=== PATIENT | female | born 1975 | race Caucasian/White ===

== ENCOUNTER → 2019-06-17 12:29 | Outpatient (BNVA) | payer OTHER, SELFPAY | PROVIDERS: Family Provider Family Medicine; PCP Family Medicine; Referring Provider Nurse Practitioner; Visit Provider Nurse Practitioner | DX: F41.0 Panic disorder [episodic paroxysmal anxiety] (principal); E03.9 Hypothyroidism, unspecified; Z76.89 Persons encountering health services in other specified circumstances | CPT/HCPCS: 84443 ==

== ENCOUNTER → 2019-08-04 11:20 | Outpatient (BNVA) | payer OTHER, SELFPAY | PROVIDERS: Family Provider Family Medicine; PCP Nurse Practitioner; Referring Provider Nurse Practitioner; Visit Provider Nurse Practitioner | DX: E03.9 Hypothyroidism, unspecified (principal) | CPT/HCPCS: 84443 ==

== ENCOUNTER → 2019-11-28 08:50 | Outpatient (BNVA) | payer OTHER, SELFPAY | PROVIDERS: Family Provider Family Medicine; PCP Family Medicine; Visit Provider Family Medicine | DX: Z13.6 Encounter for screening for cardiovascular disorders (principal); E03.9 Hypothyroidism, unspecified; F41.0 Panic disorder [episodic paroxysmal anxiety] | CPT/HCPCS: 80053; 80061; 84443; 85025; 88175 ==

== ENCOUNTER 2020-01-02 15:01 | Outpatient (CLI) | payer OTHER, SELFPAY ==
--- NOTE | 2020-01-02 15:30 | MM_ITS ---
WS: [id number] BILATERAL SCREENING DIGITAL MAMMOGRAM WITH CAD HISTORY: screening mammogram COMPARISON: None available. Bilateral CC and MLO views submitted. Computer aided detection analyzed. Breast composition: There are scattered areas of fibroglandular density. No suspicious masses, microc alcifications or architectural distortion. MM/[place] [id number] IMPRESSION: BI-RADS: 1-Negative FOLLOW UP: 1 Year Follow-up
== END 2020-01-02 15:02 | disposition home or self-care (01) ==
LOC: RADSHAW 15:05
PROVIDERS: PCP Family Medicine; Visit Provider Family Medicine
DX: Z12.31 Encounter for screening mammogram for malignant neoplasm of breast (principal)
CPT/HCPCS: 77067

== ENCOUNTER → 2020-07-06 18:28 | Outpatient (BNVA) | payer OTHER, SELFPAY | PROVIDERS: PCP Family Medicine; Visit Provider Nurse Practitioner Family | DX: S39.012A Strain of muscle, fascia and tendon of lower back, initial encounter (principal); M54.9 Dorsalgia, unspecified | CPT/HCPCS: 81000 ==

== ENCOUNTER → 2020-08-10 15:15 | Outpatient (BNVA) | payer OTHER, SELFPAY | PROVIDERS: PCP Family Medicine; Visit Provider Family Medicine | DX: E03.9 Hypothyroidism, unspecified (principal); R73.9 Hyperglycemia, unspecified | CPT/HCPCS: 83036; 84443 ==

== ENCOUNTER 2020-11-03 10:23 | Emergency (ER) | payer OTHER, SELFPAY ==
--- NOTE | 2020-11-03 10:45 | XR_ITS ---
WS: [id number] PORTABLE CHEST HISTORY: covid and SOB COMPARISON: None available. Very mild interstitial thickening throughout both lungs. No areas of dense consolidation. No lobar co llapse. No pleural effusion or pneumothorax. Cardiac size: Normal. Mediastinum/Aorta: Normal mediastinum. No osseous abnormality seen. XR/XR chest 1V portable [id number] IMPRESSION: Very mild interstitial thickening probably due to pneumonitis.
--- NOTE | 2020-11-03 10:45 | ECG_ITS ---
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 Measurements Intervals [place] Rate: 81 P: 52 [place]: 158 QRS: 17 QRSD: 91 T: 21 QT: 387 QTc: 451 Interpretive Statements SINUS RHYTHM LOW QRS VOLTAGE IN PRECORDIAL LEADS [QRS DEFLECTION < 1.0 mV IN CHEST LEADS] NONSPECIFIC T-WAVE ABNORMALITY No previous ECG available for comparison Electronically Signed On 11-03-2020 20:05:34 CDT by Karen Schrader M.D. [id number] f
[2020-11-03 10:51] VITALS: PULSE 88; RESP 19; TEMP 37.1; O2SAT 97; BMI 47.8
[2020-11-03 11:27] VITALS: O2SAT 99
[2020-11-03 11:30] LABS: Basophils % 0.4 %; Eosinophils # 0.1 10^3/uL (0.0-0.8); Eosinophils % 1.6 %; Hematocrit 40.2 % (37.0-47.0); Hemoglobin 13.1 g/dL (11.5-15.3); Lymphocytes # 1.7 10^3/uL (0.8-4.8); Lymphocytes % 33.5 %; Mean Corpuscular HGB Conc 32.6 g/dL (30.0-36.0); Mean Platelet Volume 10.4 fL (7.4-10.4); Monocytes # 0.4 10^3/uL (0.2-0.9); Neutrophils # 2.94 10^3/uL (1.8-7.7); Neutrophils % 57.3 %; Nucleated Red Blood Cells % 0 %; Platelet Count 211 10^3/cmm (130-400); Red Blood Count 4.37 10^6/uL (4.1-5.3); Red Cell Distribution Width 11.8 % (12.1-15.1); White Blood Count 5.1 10^3/uL (4.0-10.0)
[2020-11-03 12:29] LABS: D Dimer 0.62 ug/mIFEU (0-0.59)
[2020-11-03 12:33] LABS: Troponin(5th) Baseline 6 ng/L (0-10)
[2020-11-03 12:34] LABS: Lactate (Lactic Acid level) 1.8 mmol/L (0.5-2.2)
[2020-11-03 12:35] LABS: Alanine Aminotransferase 25 U/L (0-33); Albumin Level 4.1 g/dL (3.5-5.2); Alkaline Phosphatase 127 IU/L (35-105); Aspartate Amino Transferase 20 U/L (0-32); Blood Urea Nitrogen 7 mg/dL (6-20); Calcium 8.8 mg/dL (8.5-10.5); Carbon Dioxide 28 mmol/L (22-29); Chloride 105 mmol/L (98-107); Creatinine Clr Calc Pharmacy 150.3371; Globulin 2.2 g/dL (1.3-4.6); Glomerular Filtration Rate 108.1 mL/min (90-130); Glucose 110 mg/dL (65-115); Osmolality Calculated 293 mOsm/kg (285-295); Sodium 142 mmol/L (136-145); Total Bilirubin 0.3 mg/dL (0.15-1.2); Total Protein 6.3 g/dL (6.6-8.7)
--- NOTE | 2020-11-03 12:38 | CT_ITS ---
WS: [id number] CT CHEST ANGIOGRAPHY WITH REFORMATS HISTORY: Elevated dimer sob covid TECHNIQUE: Contiguous axial images are obtained through the chest during arterial injection of intrav enous contrast. Images are reconstructed to evaluate the pulmonary arteries. MIP imaging also reviewe d. All CT scans at [facility] use at least one of these dose optimization techniques: aut omated exposure control; mA and/or kV adjustment per patient size (includes targeted exams where dose is matched to clinical indication); or iterative reconstruction. CONTRAST: Omnipaque 350; 95 mL IV. DLP: 589.47 mGy.cm COMPARISON: None available. Opacification of the pulmonary arteries. No pulmonary embolism. Normal-sized thoracic aorta. Pulmonar y artery size is slightly larger than the aorta. Heart size is normal. No RIGHT heart strain. Subcent imeter RIGHT hilar lymph node. Numerous small scattered opacifications throughout all lobes. Predominantly peripheral distribution a nd slightly atypical for Covid due to their upper lobe predominant distribution. No pericardial or pl eural effusions. No abnormality of the upper abdomen. CT/CT angio chest PE protcl [id number] IMPRESSION: 1. No pulmonary embolism. 2. Bilateral multifocal areas of small pulmonary opacifications. Consider hype rsensitivity pneumonia and pneumonitis correlating with Covid.
--- NOTE | 2020-11-03 12:45 | ECG_ITS ---
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 Measurements Intervals [place] Rate: 75 P: 55 [place]: 163 QRS: 19 QRSD: 92 T: 20 QT: 391 QTc: 439 Interpretive Statements SINUS RHYTHM NONSPECIFIC T-WAVE ABNORMALITY No previous ECG available for comparison Electronically Signed On 11-03-2020 20:12:11 CDT by Karen Schrader M.D. [id number]
[2020-11-03 12:57] VITALS: BP 133/94; PULSE 76; RESP 18; O2SAT 98
--- NOTE | 2020-11-03 13:47 | PC.NURSE ---
patient c/o chest pain while coughing, no acute distress noted
[2020-11-03 14:27] LABS: Troponin 5 2HR Delta 0 ABS# (0-10)
[2020-11-03 14:34] VITALS: BP 117/75; PULSE 84; RESP 16; O2SAT 97
[2020-11-03] MEDS: iohexol 350 mg/mL 100 mL Btl IV (14:55)
--- NOTE | 2020-11-03 15:41 | W.ED.COVID ---
HPI - COVID General: Chief Complaint: COVID symptoms Stated Complaint: covid positive result, sob, chest pain, fever Time Seen by Provider: 11/03/20 10:39 Source: patient Mode of arrival: ambulatory Limitations: no limitations Triage information: No fever, cough or shortness of breath. No known COVID + exposure last 14 days History of Present Illness: HPI Narrative: 44 yo female patient presents to ER with SOB, chest pain, fever and cough. Pt had onset of symptoms 14 days ago but tested positive on Sunday. Pt states she was feeling better then started feeling worse today. Pt denies neck pain, back pain abd pain or urinary sx. pt states she is otherwise healthy COVID 19 common symptoms: positive fever(s), chills, productive cough and dyspnea; negative non-productive cough, fatigue, body aches, headache(s), throat pain, nasal congestion, nausea, vomiting or diarrhea COVID 19 other sytmptoms: negative chest pain or confusion COVID Results: No Data to Display Review of Systems Const: Reports: fever(s) and chills; Denies: body aches, change in appetite, change in weight, fatigue, malaise or diaphoresis Eyes: Denies: change in vision, blurry vision, blind spots, photophobia, eye discomfort, eye discharge, eye redness, floaters or seeing flashes ENMT: Denies: throat pain, uvular edema, enlarged tonsils, odynophagia, hoarseness, mouth pain, swelling of lips/tongue, oral sores, bleeding gums, dental pain, dry mouth, ear or mastoid pain, ear discharge, change in hearing, tinnitus, disequilibrium, nasal discharge, nasal congestion, post nasal drip or sinus pain Card: Denies: chest pain, palpitations, irregular heart rhythm, edema, swelling of feet/ankles, lightheadedness, syncope, pre-syncope, dyspnea on exertion, orthopnea, leg pain with exertion or acrocyanosis Resp: Reports: dyspnea and productive cough; Denies: non-productive cough, wheezing, stridor, pain on inspiration, change in phlegm color, hemoptysis or chest congestion GI: Denies: abdominal pain, nausea, vomiting, hematemesis, dysphagia, diarrhea, constipation, GI cramping, change in bowel habits or rectal pain : Denies: flank pain, difficulty voiding, dysuria, urinary frequency, urinary urgency, urinary hesitancy or hematuria Musc: Denies: neck pain, back pain, extremity pain, extremity swelling, joint pain, joint swelling, joint redness, joint warmth or deformity Skin/Breast: Denies: rash, pruritus, erythema, sores, new lesions, changes in skin color or dry skin Neuro: Denies: headache(s), numbness in extremities, weakness in extremities, sensory changes, lack of coordination, difficulty walking, frequent falls, dizziness, vertigo, confusion, behavioral changes, Slurred speech present, difficulty communicating thoughts or seizure-like activity Psych: Denies: anxiety, depression, suicidal ideation or homicidal ideation Endo: Denies: polyuria, polydipsia, tired all the time, cold intolerance, excessive sweating, flushing, hot flashes or heat intolerance Osmar/Lymph: Denies: easy bruising, easy bleeding, petechiae, purpura, enlarged lymph nodes or tender lymph nodes All/Imm: Denies: urticaria, throat swelling, tongue swelling, facial swelling, acute wheezing or itchy eyes PFSH ED PFSH: Medical History Allergic rhinitis GERD (gastroesophageal reflux disease) Hypothyroidism Severe anxiety with panic Surgical History History of endometrial ablation perineoplasty at the same time Hx of oophorectomy Family History Other Cancer Dementia Diabetes Hypertension Psychiatric illness Stroke Social History Smoking and tobacco status: former smoker Alcohol intake: current Alcohol intake frequency: few times a month Adopted: No Caregiver/support person: No Lives independently: Yes Household members: spouse Housing: House Marital status: Number of children: 4 Number of grandchildren: 4 Highest education level completed: High School Graduate service: No Current occupational status: employed Current occupational exposures/hazards: Yes Pets and animals: Yes History of recent travel: No Agree to transfusion: Yes (06/17/2019) Physical Exam Const: COMMON NORMALS: no acute distress, patient oriented x3, healthy appearing, alert and well nourished GENERAL APPEARANCE: cooperative, comfortable, well kempt and well developed; not ill appearing ORIENTATION/CONSCIOUSNESS: Yes awake, Yes oriented to person, Yes oriented to place and Yes oriented to time HENMT: COMMON NORMALS: normocephalic, atraumatic, hearing grossly normal bilaterally, external ears normal, EAC's normal, TM's normal bilaterally, Normal external nose present, Normal nasal mucous membranes and turbinates present and moist oral mucous membranes HEAD & SCALP: normal to inspection, normocephalic and atraumatic FACE & SINUS: normal facial exam, sinuses nontender and face symmetric NOSE: Normal external nose present, Normal nares present, Normal nasal mucous membranes and turbinates present, No nasal discharge present and Abnormal external nose present EXTERNAL EAR: Yes external ears normal and Yes mastoids normal EXTERNAL AUDITORY CANAL: EAC's normal TYMPANIC MEMBRANE: TM's normal bilaterally MOUTH: Normal oral and palatal mucosa present, lip normal, tongue normal and Normal salivary glands and ducts present THROAT: no uvular edema Eye: COMMON NORMALS: Equal, round and reactive pupils present, EOMs intact bilaterally, conjunctivae normal, no scleral icterus and no papilledema GENERAL EYE: appearance normal, both eyes and all related structures EYELID: eyelids normal CONJUNCTIVA: Yes conjunctivae normal SCLERA: sclerae normal CORNEA: Yes corneas normal PUPIL: Yes Equal, round and reactive pupils present DIRECT OPHTHALMOSCOPY: Yes no papilledema Neck/C-Spine: COMMON NORMALS: full ROM, no lymphadenopathy, supple, no meningeal signs, no JVD and Thyroid normal GENERAL: Yes normal visual inspection and Yes trachea midline THYROID: Thyroid normal CERVICAL SPINE: Yes cervical ROM normal Lymph: LYMPHATIC: no lymphadenopathy noted and no lymphedema noted Chest: COMMONS NORMALS: normal inspection of the chest and normal palpation of entire chest wall Resp: COMMON NORMALS: normal respiratory effort, No retractions, No use of accessory muscles and clear to auscultation bilaterally EFFORT & INSPECTION: Yes able to speak in complete sentences and Yes symmetric chest movement AUSCULTATION: clear to auscultation bilaterally Cardio: COMMON NORMALS: no JVD, regular rate and regular rhythm RATE: regular rate RHYTHM: regular rhythm GI: COMMON NORMALS: Normal to inspection, nondistended, normoactive bowel sounds present, Soft to palpation, non-tender, No hepatosplenomegaly present, no masses and no bruits INSPECTION: Yes normal to inspection AUSCULTATION: Yes normoactive bowel sounds PALPATION: Yes Soft to palpation and Yes No hepatosplenomegaly present PERCUSSION: normal to percussion RECTAL EXAM: deferred : COMMON NORMALS: Yes no CVA tenderness, Yes normal external appearance, Yes normal appearance of the vagina, Yes normal appearance of the cervix, Yes normal bimanual exam, Yes No adnexal tenderness and Yes no masses BLADDER/KIDNEY EXAM: Yes no CVA tenderness BIMANUAL EXAM - VAGINA & UTERUS: Yes normal bimanual exam Back/Pelvis: COMMON NORMALS: no CVA tenderness, thoracic and lumbar spine normal to inspection, no thoracic nor lumbar tenderness, thoraco-lumbar ROM normal and straight leg raise negative bilaterally THORACIC SPINE/UPPER BACK: Yes normal to inspection LUMBAR SPINE/LOWER BACK: Yes normal to inspection Extremity: COMMON NORMALS: normal to inspection, full ROM and capillary refill normal GENERAL: Yes normal exam except as noted Neuro: COMMON NORMALS: patient oriented x3, CN's II-XII intact bilaterally, moves all extremities, no focal motor deficits, no sensory deficits noted, deep tendon reflexes 2+ bilaterally and gait normal SENSORIUM/ORIENTATION: Yes alert, Yes oriented to person, Yes oriented to place and Yes oriented to time MENINGEAL SIGNS: Yes no meningeal signs CRANIAL NERVES: Yes CN normal except as noted SPEECH: speech normal GAIT: Yes Normal gait present SENSORY EXAM: Yes extremities MOTOR EXAM: 5/5 motor strength present throughout Psych: COMMON NORMALS: mental status grossly normal, Normal thought process present, cooperative, normal affect, speech normal, activity/motor behavior normal, denies hallucinations, denies homicidal ideation and denies suicidal ideation APPEARANCE: Yes grossly normal and Yes well kempt ATTITUDE: Yes calm ACTIVITY/MOTOR BEHAVIOR: Yes appropriate eye contact SPEECH: Yes normal speech THOUGHT PROCESS: Normal thought process present THOUGHT CONTENT: Yes Normal thought content present ATTENTION/CONCENTRATION: Yes attention grossly intact MEMORY/COGNITION: Yes memory grossly intact INSIGHT: Good insight present (Psych) JUDGEMENT: Good judgement present (Psych) Skin: COMMON NORMALS: no rashes or lesions noted, no wounds, turgor normal, no jaundice, no petechiae and no mottling GENERAL SKIN EXAM: no rashes or lesions noted and turgor normal Course Vital Signs: Vital signs: Vital Signs Temperature 98.7 F 11/03/20 10:51 Pulse Rate 84 11/03/20 14:34 Respiratory Rate 16 11/03/20 14:34 Blood Pressure 117/75 11/03/20 14:34 Pulse Oximetry 97 11/03/20 14:34 MDM - COVID MDM Narrative: Medical decision making narrative: Pt is well appearing non toxic and in no acute distress. Pt has no evidence of hypoxia and lungs are CTA. VSS. Labs do not reveal any concerning findings. D Dimer was elevated so I did order CT chest PE protocol which was negative for PE. Based on CT findings and length of symptoms I do feel antibiotics, steroids and inhaler are appropriate at this time. Delta trop is 0 and EKG does not reveal any st elevations or depressions making this inlikely to be cardiac in nature. I have discussed return precautions with patient as well as follow up. Lab Data: Labs: Lab Results 11/03/20 11/03/20 11/03/20 Range/Units 11:22 11:22 11:22 WBC 5.1 (4.0-10.0) 10^3/ uL RBC 4.37 (4.1-5.3) 10^6/u L Hgb 13.1 (11.5-15.3) g/dL Hct 40.2 (37.0-47.0) % MCV 92.0 (81-99) fL MCH 30.0 (28.0-34.0) pg MCHC 32.6 (30.0-36.0) g/dL RDW 11.8 L (12.1-15.1) % Plt Count 211 (130-400) 10^3/c mm MPV 10.4 (7.4-10.4) fL Neut % (Auto) 57.3 % Lymph % (Auto) 33.5 % [place] % (Auto) 7.0 % Eos % (Auto) 1.6 % Baso % (Auto) 0.4 % Neut # (Auto) 2.94 (1.8-7.7) 10^3/u L Lymph # (Auto) 1.7 (0.8-4.8) 10^3/u L [place] # (Auto) 0.4 (0.2-0.9) 10^3/u L Eos # (Auto) 0.1 (0.0-0.8) 10^3/u L Baso # (Auto) 0.0 (0.0-0.1) 10^3/u L Nucleated RBC % (a uto) 0 % Nucleated RBCs # 0.0 /100WBC D-Dimer Cancelled Sodium Cancelled Potassium Cancelled Chloride Cancelled Carbon Dioxide Cancelled Anion Gap Cancelled BUN Cancelled Creatinine Cancelled GFR Calculation Cancelled Glucose Cancelled Calculated Osmolal ity Cancelled Lactate Calcium Cancelled Total Bilirubin Cancelled AST Cancelled ALT Cancelled Alkaline Phosphata se Cancelled Troponin T Baselin e Troponin T 120 Min [place] (0-10) ng/L Delta Troponin T (0-10) ABS# Total Protein Cancelled Albumin Cancelled Globulin Cancelled 11/03/20 11/03/20 11/03/20 Range/Units 11:22 11:22 12:05 WBC (4.0-10.0) 10^3/ uL RBC (4.1-5.3) 10^6/u L Hgb (11.5-15.3) g/dL Hct (37.0-47.0) % MCV (81-99) fL MCH (28.0-34.0) pg MCHC (30.0-36.0) g/dL RDW (12.1-15.1) % Plt Count (130-400) 10^3/c mm MPV (7.4-10.4) fL Neut % (Auto) % Lymph % (Auto) % [place] % (Auto) % Eos % (Auto) % Baso % (Auto) % Neut # (Auto) (1.8-7.7) 10^3/u L Lymph # (Auto) (0.8-4.8) 10^3/u L [place] # (Auto) (0.2-0.9) 10^3/u L Eos # (Auto) (0.0-0.8) 10^3/u L Baso # (Auto) (0.0-0.1) 10^3/u L Nucleated RBC % (a uto) % Nucleated RBCs # /100WBC D-Dimer 0.62 H Sodium Potassium Chloride Carbon Dioxide Anion Gap BUN Creatinine GFR Calculation Glucose Calculated Osmolal ity Lactate Cancelled Calcium Total Bilirubin AST ALT Alkaline Phosphata se Troponin T Baselin e Cancelled Troponin T 120 Min [place] (0-10) ng/L Delta Troponin T (0-10) ABS# Total Protein Albumin Globulin 11/03/20 11/03/20 11/03/20 Range/Units 12:05 12:05 12:05 WBC (4.0-10.0) 10^3/ uL RBC (4.1-5.3) 10^6/u L Hgb (11.5-15.3) g/dL Hct (37.0-47.0) % MCV (81-99) fL MCH (28.0-34.0) pg MCHC (30.0-36.0) g/dL RDW (12.1-15.1) % Plt Count (130-400) 10^3/c mm MPV (7.4-10.4) fL Neut % (Auto) % Lymph % (Auto) % [place] % (Auto) % Eos % (Auto) % Baso % (Auto) % Neut # (Auto) (1.8-7.7) 10^3/u L Lymph # (Auto) (0.8-4.8) 10^3/u L [place] # (Auto) (0.2-0.9) 10^3/u L Eos # (Auto) (0.0-0.8) 10^3/u L Baso # (Auto) (0.0-0.1) 10^3/u L Nucleated RBC % (a uto) % Nucleated RBCs # /100WBC D-Dimer Sodium 142 Potassium 4.0 Chloride 105 Carbon Dioxide 28 Anion Gap 13.0 BUN 7 Creatinine 0.6 GFR Calculation 108.1 Glucose 110 Calculated Osmolal ity 293 Lactate 1.8 Calcium 8.8 Total Bilirubin 0.3 AST 20 ALT 25 Alkaline Phosphata se 127 H Troponin T Baselin e 6 Troponin T 120 Min [place] (0-10) ng/L Delta Troponin T (0-10) ABS# Total Protein 6.3 L Albumin 4.1 Globulin 2.2 11/03/20 Range/Units 14:01 WBC (4.0-10.0) 10^3/ uL RBC (4.1-5.3) 10^6/u L Hgb (11.5-15.3) g/dL Hct (37.0-47.0) % MCV (81-99) fL MCH (28.0-34.0) pg MCHC (30.0-36.0) g/dL RDW (12.1-15.1) % Plt Count (130-400) 10^3/c mm MPV (7.4-10.4) fL Neut % (Auto) % Lymph % (Auto) % [place] % (Auto) % Eos % (Auto) % Baso % (Auto) % Neut # (Auto) (1.8-7.7) 10^3/u L Lymph # (Auto) (0.8-4.8) 10^3/u L [place] # (Auto) (0.2-0.9) 10^3/u L Eos # (Auto) (0.0-0.8) 10^3/u L Baso # (Auto) (0.0-0.1) 10^3/u L Nucleated RBC % (a uto) % Nucleated RBCs # /100WBC D-Dimer Sodium Potassium Chloride Carbon Dioxide Anion Gap BUN Creatinine GFR Calculation Glucose Calculated Osmolal ity Lactate Calcium Total Bilirubin AST ALT Alkaline Phosphata se Troponin T Baselin e Troponin T 120 Min [place] 6.00 (0-10) ng/L Delta Troponin T 0 (0-10) ABS# Total Protein Albumin Globulin COVID Results: No Data to Display Discharge Plan Discharge Patient Disposition: Home Clinical Impression: COVID-19 Condition: Stable Prescriptions: New azithromycin 500 mg tablet See Rx Instructions .ROUTE .COMPLEX Qty: 3 RF: 0 albuterol sulfate 90 mcg/actuation HFA aerosol inhaler 1 inh inhalation Q6H PRN (Reason: shortness of breath or wheezing) Qty: 6.7 RF: 0 prednisone 20 mg tablet 20 mg PO BID 5 Days Qty: 10 RF: 0 No Action cetirizine [Zyrtec] 10 mg tablet 10 mg PO DAILY RF: 0 multivitamin Tablet 1 tab PO DAILY RF: 0 acetaminophen [Tylenol Extra Strength] 500 mg tablet 500 mg PO DAILY PRNRF: 0 triamterene-hydrochlorothiazid 37.5-25 mg tablet 0.5 - 1 tab PO DAILY PRN (Reason: leg swelling ) Qty: 90 RF: 1 fluoxetine 40 mg capsule 40 mg PO DAILY Qty: 90 RF: 0 cyclobenzaprine 5 mg tablet 5 mg PO TID PRN (Reason: muscle pain) Qty: 10 RF: 0 clonazepam [Klonopin] 0.5 mg tablet 0.5 mg PO DAILY PRN (Reason: anxiety) Qty: 30 RF: 0 fluticasone propionate 50 mcg/actuation spray,suspension 1 spray INTRANASAL DAILY Qty: 15.8 RF: 1 levothyroxine 75 mcg capsule 75 mcg PO DAILY Qty: 90 RF: 1 Discharge Orders: Discharge ED (Routine); Ordered 11/03/20 Ordered By: Antonella Calvo Referrals: Paula Farris, [Primary Care Provider] - Discharge Diet: Advance as tolerated Discharge Activity: Increase activity as tolerated Patient Instructions: Pneumonia (ED), Opioid Safety Activity Restrictions/Additional Instructions: Take meds as directed Please return to the ER if ntact your healthcare provider if: Your symptoms are the same or get worse 48 hours after starting antibiotics. Your fever is not below 99?F (37.2?C) 48 hours after starting antibiotics. You have a fever higher than 101?F (38.3?C). You cannot eat or have loss of appetite, nausea, or vomiting. You cough up blood. Your heart beats more than 100 beats in 1 minute. You are very tired, confused, and cannot think clearly. You have chest pain or trouble breathing. Your lips or fingernails turn stafford or blue. Coding Level of Care Code ED Ice Handler for Mago Murillo
[2020-11-03 15:48] VITALS: BP 135/79; PULSE 73; RESP 16; O2SAT 97
== END 2020-11-03 15:50 | disposition home or self-care (01) ==
PROVIDERS: Emergency Provider Registered Nurse; PCP Family Medicine
DX: U07.1 COVID-19 (principal); Z87.891 Personal history of nicotine dependence
CPT/HCPCS: 36415; 71045; 71275; 80053; 83605; 84484; 85025; 85378; 93005; 99283; Q9967

== ENCOUNTER → 2021-06-07 08:59 | Outpatient (BNVA) | payer OTHER, SELFPAY | PROVIDERS: PCP Family Medicine; Visit Provider Family Medicine | DX: E03.9 Hypothyroidism, unspecified (principal) | CPT/HCPCS: 84443 ==

== ENCOUNTER → 2021-09-23 07:26 | Outpatient (BNVA) | payer OTHER, SELFPAY | PROVIDERS: PCP Family Medicine; Visit Provider Family Medicine Adult Medicine | DX: N23 Unspecified renal colic (principal); R35.0 Frequency of micturition; M54.50 Low back pain, unspecified | CPT/HCPCS: 81000 ==

== ENCOUNTER → 2021-11-25 09:12 | Outpatient (BNVA) | payer OTHER, SELFPAY | PROVIDERS: PCP Family Medicine; Visit Provider Family Medicine | DX: E03.9 Hypothyroidism, unspecified (principal); R73.9 Hyperglycemia, unspecified; Z13.6 Encounter for screening for cardiovascular disorders | CPT/HCPCS: 80053; 80061; 83036; 84443; 85025 ==

== ENCOUNTER → 2022-12-11 08:34 | Outpatient (BNVA) | payer OTHER, SELFPAY | PROVIDERS: PCP Family Medicine; Visit Provider Family Medicine | DX: Z13.6 Encounter for screening for cardiovascular disorders (principal); E03.9 Hypothyroidism, unspecified | CPT/HCPCS: 80053; 80061; 84443; 85025 ==

== ENCOUNTER → 2023-09-20 12:07 | Outpatient (BNVA) | payer OTHER, SELFPAY | PROVIDERS: PCP Family Medicine; Visit Provider Family Medicine | DX: E03.9 Hypothyroidism, unspecified (principal) | CPT/HCPCS: 84443 ==

== ENCOUNTER 2023-10-01 07:55 | Outpatient (CLI) | payer OTHER, SELFPAY ==
--- NOTE | 2023-10-01 08:00 | MM_ITS ---
WS: [id number] BILATERAL SCREENING DIGITAL TOMOSYNTHESIS MAMMOGRAM WITH CAD HISTORY: screening COMPARISON: 01/02/2020 Bilateral CC and MLO views with tomosynthesis and synthetic mammography submitted. Computer aided det ection analyzed. Breast composition: There are scattered areas of fibroglandular density. No suspicious masses, microc alcifications or architectural distortion. MM/[place] [id number] IMPRESSION: BI-RADS: 1-Negative FOLLOW UP: 1 Year Follow-up
== END 2023-10-01 07:56 | disposition home or self-care (01) ==
LOC: RAD 07:55
PROVIDERS: PCP Family Medicine; Visit Provider Family Medicine
DX: Z12.31 Encounter for screening mammogram for malignant neoplasm of breast (principal)
CPT/HCPCS: 77063; 77067

== ENCOUNTER 2023-11-06 15:45 | Outpatient (CLI) | payer OTHER, SELFPAY ==
--- NOTE | 2023-11-06 16:00 | USR_ITS ---
PROCEDURE INFORMATION: Exam: US Abdomen, Limited; Right Upper Quadrant Exam date and time: 11/06/2023 3:55 PM Age: 47 years old Clinical indication: Abdominal pain; Localized; Right upper quadrant (ruq); Additional info: Ruq pain TECHNIQUE: Imaging protocol: Real time ultrasound of the abdomen with image documentation. Limited exam focused on the right upper quadrant. COMPARISON: CT angio chest PE protcl [id number] 11/03/2020 2:52 PM FINDINGS: Liver: Normal. No masses. Gallbladder: Small echogenic gallstones. There is no gallbladder wall thickening or pericholecystic fluid collection. Biliary ducts: Unremarkable. No stones. No dilation. Visualized common duct measures 2 mm diameter. Pancreas: Visualized pancreas is unremarkable. Right kidney: Normal. No mass. No hydronephrosis. Measures 9.9 cm in length. Aorta: Visualized aorta and IVC demonstrate normal caliber. US/US gall bladder [id number] IMPRESSION: Cholelithiasis.
== END 2023-11-06 15:46 | disposition home or self-care (01) ==
LOC: RAD 15:46
PROVIDERS: PCP Family Medicine; Visit Provider Family Medicine
DX: R10.11 Right upper quadrant pain (principal); K80.20 Calculus of gallbladder without cholecystitis without obstruction
CPT/HCPCS: 76705

== ENCOUNTER 2023-12-31 06:57 | Day surgery (SDC) | payer OTHER, SELFPAY ==
[2023-12-31] VITALS (16 sets, daily range): BP systolic 95–143; BP diastolic 51–101; PULSE 70–82; RESP 16–20; TEMP 36.1–36.6; O2SAT 91–97; BMI 46.7
[2023-12-31] MEDS: sodium chloride 0.9% 1,000 ML 30 ML IV (07:22)
--- NOTE | 2023-12-31 08:07 | P.HPUD_ITS ---
Surgery/Procedure H&P Update DATE OF PROCEDURE: December 31, 2023 DATE H&P PERFORMED: 12/19/23 H&P UPDATE INFORMATION: I have reviewed H&P completed within last 30 days, I have examined patient prior to procedure, No changes to prior documentation and H&P is in [facility] EMR on date indicated PREOP DIAGNOSIS: Symptomatic cholelithiasis PLANNED PROCEDURE: Operation Date: 12/31/23 08:40 Proposed Procedures p Laparoscopic Cholecystectomy 52043, Z95.828(Not Applicable) - Daron Milner MD
--- NOTE | 2023-12-31 08:20 | ANES.PREANE2 ---
Pre-Anesthetic Assessment Height/Weight: Height 1.6 m Weight 119.748 kg Temp Pulse Resp BP Pulse Ox O2 Del Method 97.8 F 77 18 143/101 96 Room Air 12/31/23 07:16 12/31/23 07:16 12/31/23 07:16 12/31/23 07:16 12/31/23 07:16 12/31/23 07:16 Preop Diagnosis: Symptomatic cholelithiasis Operation Date: 12/31/23 08:40 Proposed Procedures p Laparoscopic Cholecystectomy 50292, Z95.828(Not Applicable) - Daron Milner MD Familial anesthetic complications: None Was Beta Cj taken within 24 hours: N/A Was Clonidine taken within 24 hours: N/A Last intake: Intake Last Liquid Date 12/30/23 Last Liquid Time 00:00 Last Solid Date 12/30/23 Last Solid Time 18:00 Social No alcohol and No tobacco Exam alert, oriented x 3, clear to auscultation bilaterally and regular rate & rhythm Airway Mallampati: Class III Dentition: other (top R black discolored and rotting) GI Gastroesophageal Reflux Disease Metabolic Morbid Obesity and Thyroid Disease Anesthetic Plan ASA status: 2 Anesthesia: General Risk of > 500 ml blood loss (7ml/kg in children): No Medications/Allergies Home Medications Medication Instructions Recorded Confirmed Last Taken Type acetaminophen 500 mg tablet 500 mg PO DAILY PRN Pain 06/17/19 12/28/23 12/28/23 History (Tylenol Extra Strength) cetirizine 10 mg tablet (Zyrtec) 10 mg PO DAILY 06/17/19 12/31/23 12/30/23 History multivitamin 1 tab PO DAILY 06/17/19 12/31/23 12/30/23 History famotidine 40 mg PO DAILY 09/23/21 12/31/23 12/30/23 History triamterene 37.5 0.5 - 1 tab PO DAILY PRN leg 11/25/21 12/28/23 Unknown Rx mg-hydrochlorothiazide 25 mg tablet swelling #90 tabs clonazepam 0.5 mg tablet (Klonopin) 0.5 mg PO DAILY PRN anxiety #30 09/20/23 12/28/23 Unknown Rx tabs fluticasone propionate 50 1 spray intranasal DAILY #15.8 mL 09/20/23 12/28/23 Unknown Rx mcg/actuation nasal spray,suspension fluoxetine 20 mg capsule 20 mg PO DAILY 12/28/23 12/31/23 12/30/23 History fluoxetine 40 mg capsule 40 mg PO DAILY 12/28/23 12/31/23 12/30/23 History levothyroxine 75 mcg tablet 75 mcg PO DAILY 12/28/23 12/31/23 12/30/23 History Allergies Allergy/AdvReac Type Severity Reaction Status Date / Time naproxen Allergy ALGY-Difficulty Verified 12/19/23 08:04 Breathing bee venom protein (honey bee) AdvReac Mild unknown Verified 12/19/23 08:04 Current Medications Generic Name Dose Route Start Last Admin Trade Name Freq PRN Reason Stop Dose Admin Sodium Chloride 1,000 mls @ 30 mls/hr 12/31/23 07:15 12/31/23 07:25 Sodium Chloride 0.9% IV 01/01/24 07:14 30 mls/hr .Q24H GONZÁLEZ Infusion PFSH Anesthesia Medical History Low back pain History of COVID-19 Allergic rhinitis Hypothyroidism GERD (gastroesophageal reflux disease) Severe anxiety with panic Surgical History History of endometrial ablation perineoplasty at the same time Hx of oophorectomy Family History Other Cancer Dementia Diabetes Hypertension Psychiatric illness Stroke Social History Smoking and tobacco/nicotine status: never used tobacco/nicotine Alcohol intake: current Alcohol intake frequency: few times a month Substance/Drug Use: never Adopted: No Caregiver/support person: No Lives independently: Yes Household members: spouse Housing: House Marital status: Number of children: 4 Number of grandchildren: 4 Highest education level completed: High School Graduate service: No Current occupational status: employed Current occupational exposures/hazards: Yes Pets and animals: Yes Agree to transfusion: Yes (06/17/2019) Data Anesthesia Cardiac Studies: No Data to Display
[2023-12-31] MEDS: ceFAZolin 3,000 MG in sodium chloride 0.9% (plus) 100 ML 200 MG IV (08:40)
[2023-12-31] MEDS: lidocaine-epi 1% 20 mL INJ INJECTION (10:00)
[2023-12-31] MEDS: BUPivacaine 0.25% INJ 10 mL INJECTION (10:00)
--- NOTE | 2023-12-31 10:17 | PM.OP ---
Operative Report Date of procedure: December 31, 2023 Pre-op diagnosis: Symptomatic cholelithiasis Post-op diagnosis: Same Post-op findings: Normal biliary anatomy, fatty liver, incidental finding of a supraumbilical hernia Procedure done: Laparoscopic cholecystectomy Specimens removed/disposition: Gallbladder and contents Surgeon: Daron Milner MD Game Designer/Creative Director: [facility] OR Staff Estimated blood loss: 5 Brief History: 48-year-old female with history of symptomatic cholelithiasis who presents to my clinic for evaluation for possible cholecystectomy. After discussion of all risk benefits as documented on my pre-op note we decided to proceed. Procedure: Patient was brought into the OR, she was placed in a supine position. General anesthesia was given. The abdomen was prepped and draped in the usual sterile fashion. Timeout was conducted. The abdomen was accessed with a 5 mm Optiview trocar at the level of the left upper quadrant, initial pneumoperitoneum was achieved. No evidence of visceral injury during entry was noted. An additional 12 mm trocar was placed in a supra umbilical location, avoiding the area where ventral hernia was noted. This was done under direct visualization. Additional 5 mm trocars were placed in the epigastrium right upper quadrant right flank position also under direct visualization. I grasped the gallbladder from the fundus and retracted cephalad, retraction was difficult due to fatty liver. I then grasped the infundibulum of the gallbladder and retracted on the inferolateral direction exposing the hepatocystic triangle. With careful blunt dissection I opened the peritoneum anterior to the patella cystic triangle, I carried this opening in the medial and lateral direction to the edges of the liver and then on the sides of the gallbladder to allow for better exposure. With careful blunt dissection and electrocautery I was able to encircle the cystic duct and cystic artery, I was also able to elevate the lower third of the gallbladder from the liver bed, thus creating the critical view of safety. The cystic duct and artery were double clipped proximally and single clipped distally and transected. The gallbladder was removed from the liver bed using electrocautery, this was challenging due to the anatomy of the liver and the gallbladder being partially intrahepatic. A small hole was made in the posterior wall of the gallbladder, all bile duct leak from this area was suction with the suction sales representative gas service. Once the gallbladder was removed from the liver bed no evidence of bleeding or bile leak was noted. The gallbladder was retrieved through the supraumbilical trocar in an Endo Catch bag. The gallbladder bed and perihepatic spaces was irrigated and suctioned. The supraumbilical trocar site was closed with #0 Vicryl using a Fran-Kike suture passer. The left upper quadrant epigastrium and right upper quadrant trocars were removed under direct visualization, the right flank trocar was used to evacuate the pneumoperitoneum and subsequently removed. The wounds were then closed in layers using #3-0 Vicryl for the subcutaneous tissue and #4 Monocryl for the skin. Dermabond was applied. Local anesthesia was applied before closing the wounds. At the end of the procedure all counts were correct, the patient tolerated well the procedure, was extubated and transferred to the PACU in stable condition.
[2023-12-31] MEDS: fentaNYL 50 mcg/mL INJ 2mL IVP (10:56)
[2023-12-31] MEDS: ondansetron 2 mg/ML SDV 2 mL 4 MG IVP (11:23)
--- NOTE | 2023-12-31 12:25 | ANE.PACU2 ---
Inpatient post-anesthesia follow up: Airway intact: Yes Vital signs: Temperature 97.0 F Pulse Rate 74 Respiratory Rate 18 Blood Pressure 134/82 Pulse Oximetry 92 Oxygen Delivery Me thod Room Air Oxygen Flow Rate 2 Fraction of Inspir ed Oxygen Hydration adequate: Yes Nausea and vomiting: No Pain level: 1 Mental status: Baseline
== END 2023-12-31 12:24 | disposition home or self-care (01) ==
PROVIDERS: PCP Family Medicine; Visit Provider Surgery
PROC: 0FT44ZZ Resection of Gallbladder, Percutaneous Endoscopic Approach (ICD-10-PCS; CPT 47562; principal; 2023-12-31 08:30)
DX: K80.10 Calculus of gallbladder with chronic cholecystitis without obstruction (principal); K76.0 Fatty (change of) liver, not elsewhere classified; K42.9 Umbilical hernia without obstruction or gangrene; K21.9 Gastro-esophageal reflux disease without esophagitis; E66.01 Morbid (severe) obesity due to excess calories; Z68.42 Body mass index [BMI] 45.0-49.9, adult; Z86.16 Personal history of COVID-19
CPT/HCPCS: 47562; 88304; J0690; J1100; J2405; J2704; J3010; J3490; J7030

== ENCOUNTER → 2024-09-01 08:33 | Outpatient (BNVA) | payer OTHER, SELFPAY | PROVIDERS: PCP Family Medicine; Visit Provider Family Medicine | DX: R73.9 Hyperglycemia, unspecified (principal); E03.9 Hypothyroidism, unspecified; Z13.6 Encounter for screening for cardiovascular disorders; F41.0 Panic disorder [episodic paroxysmal anxiety]; Z12.11 Encounter for screening for malignant neoplasm of colon; Z12.12 Encounter for screening for malignant neoplasm of rectum; R60.0 Localized edema; R03.0 Elevated blood-pressure reading, without diagnosis of hypertension | CPT/HCPCS: 80053; 80061; 83036; 84443; 85025 ==